=== PATIENT | female | born 1965 | race Asian ===

== ENCOUNTER 2020-05-18 10:09 | Day surgery (SDC) | payer BC, OTHER ==
[~2020-05-18] VITALS: Ht 152.4 cm; Wt 45.5 kg
[2020-05-18 11:12] LABS: BASOPHILS % (AUTO) 1 % (0-1); EOSINOPHILS % (AUTO) 1 % (1-7); LYMPHOCYTES % (AUTO) 21 % (22-44); MEAN CORPUSCULAR HEMOGLOBIN 33.5 pg (27.0-34.8); MEAN CORPUSCULAR HGB CONC 34.6 g/dL (32.4-35.8); MEAN PLATELET VOLUME 7.8 fL (7.4-10.4); MONOCYTES % (AUTO) 7 % (2-9); NEUTROPHILS % (AUTO) 70 % (42-75); PLATELET COUNT 198 x10^3/uL (130-400); RED BLOOD COUNT 4.42 x10^6/uL (3.82-5.3)
[2020-05-18 11:16] LABS: MD NO
[2020-05-18 11:24] LABS: ANION GAP 9 mmol/L (5-15); CALCIUM 9.1 mg/dL (8.5-10.1); CHLORIDE 105 mmol/L (98-107)
[2020-05-18 11:25] LABS: CREATININE 0.95 mg/dL (0.55-1.02)
[2020-05-18] MEDS ORDERED: POTA20TA14 PO (11:43)
[2020-05-18] MEDS ORDERED: MAGN400T36 PO (11:43)
[2020-05-18] MEDS ORDERED: LISI2.5T PO (11:43)
[2020-05-18] MEDS ORDERED: WARF2.5T32 PO (11:43)
[2020-05-18] MEDS ORDERED: ATOR40TA78 PO (11:43)
[2020-05-18] MEDS ORDERED: FURO-92 PO (11:43)
[2020-05-18] MEDS ORDERED: ASPI81TA45 PO (11:43)
[2020-05-18] MEDS ORDERED: METO25TA35 PO (11:43)
[2020-05-18 11:52] VITALS: BP 113/83
[2020-05-18 12:26] LABS: INTERNATIONAL NORMALIZED RATIO 1.24 (0.93-1.1); PROTHROMBIN TIME 13.2 Seconds (9.6-11.5)
[2020-05-18] MEDS ORDERED: VERAPAMIL 2.5 MG/ML, 2ML ONE (12:38)
[2020-05-18] MEDS ORDERED: FENTANYL PF 100 MCG/2ML ONE (12:38)
[2020-05-18] MEDS ORDERED: MIDAZOLAM 1 MG/ML, 5ML ONE (12:38)
[2020-05-18] MEDS ORDERED: LIDOCAINE 2%, 20ML ONE (12:39)
[2020-05-18] MEDS ORDERED: BIVALIRUDIN 250 MG ONE (12:39)
[2020-05-18] MEDS ORDERED: HEPARIN 1,000 UNITS/ML, 10ML ONE (12:39)
== END 2020-05-18 15:33 | disposition home or self-care (01) ==
LOC: CACL 10:09
PROVIDERS: ATTEND Internal Medicine Cardiovascular Disease
DX: I50.812 Chronic right heart failure (principal); I48.20 Chronic atrial fibrillation, unspecified; I25.2 Old myocardial infarction; Z91.040 Latex allergy status; Z79.82 Long term (current) use of aspirin; Z79.899 Other long term (current) drug therapy; Z87.01 Personal history of pneumonia (recurrent); Z98.890 Other specified postprocedural states
CPT/HCPCS: 36415; 80048; 85025; 85610; 93458; 99156; C1769; C1894; J1644; J2250; J3010; Q9967; J0583